=== PATIENT | female | born 1975 | race Two or more races ===

== ENCOUNTER → 2021-09-23 | Day surgery (SDC) | payer MEDICAID ==
[2021-09-21 10:38] LABS: Basophils # (auto) 0.1 10 ^3/uL (0-0.2); Basophils % (auto) 1.3 % (0.0-2.0); Eosinophils # (auto) 0.1 10 ^3/uL (0-0.8); Eosinophils % (auto) 0.7 % (0.0-7.0); Hematocrit 42.1 % (36.0-46.0); Hemoglobin 14.1 g/dL (12.2-16.2); Lymphocytes # (auto) 2.8 10 ^3/uL (0.4-5.4); Lymphocytes % (auto) 34.2 % (10.0-50.0); Mean Corpuscular Hgb Conc. 33.5 g/dL (32.0-36.0); Mean Corpuscular Volume 92.6 fL (80.0-100.0); Monocytes # (auto) 0.6 10 ^3/uL (0-1.3); Monocytes % (auto) 6.8 % (0.0-12.0); Neutrophils # (auto) 4.7 10 ^3/uL (1.6-8.6); Nucleated Red Blood Cells % 0.1 %; Red Blood Cells 4.55 10^6/uL (4.0-5.20); Red Cell Distribution Width 13.4 % (11.8-14.3); White Blood Cell 8.2 10^3/uL (4.4-10.8)
[2021-09-21 12:25] LABS: Albumin 3.7 g/dL (3.4-5.0); Calcium 8.8 mg/dL (8.5-10.1); Potassium 4.4 mmol/L (3.5-5.1)
[2021-09-21 12:30] LABS: Bilirubin, Total 0.5 mg/dL (0.2-1.0); Total Protein 6.8 g/dL (6.4-8.2)
[2021-09-21 12:54] LABS: BUN/Creatinine Ratio 11.3
[~2021-09-23] VITALS: Ht 167.6 cm; Wt 75.3 kg
[~2021-09-23] MED LIST: IBUP200T76 PO; LIDOCAINE VISCOUS 2% 15ML UD ONE; SUMA50TA2 PO; diphenhdrAMINE HCL 50 MG/1 ML VL ONE
[2021-09-23] MEDS: MIDAZOLAM HCL 5 MG/ML-1ML VIAL ONE ×2 (13:55→14:01)
[2021-09-23] MEDS: fentaNYL CITRATE 100 MCG/2 ML VL ONE ×2 (13:55→14:01)
[2021-09-23 14:45] VITALS: BP 103/69
== END | disposition home or self-care (01) ==
LOC: GI 12:18
PROVIDERS: ATTEND Internal Medicine Gastroenterology
DX: R13.10 Dysphagia, unspecified (principal); K29.50 Unspecified chronic gastritis without bleeding; B96.81 Helicobacter pylori [H. pylori] as the cause of diseases classified elsewhere; K22.10 Ulcer of esophagus without bleeding; K44.9 Diaphragmatic hernia without obstruction or gangrene; G43.909 Migraine, unspecified, not intractable, without status migrainosus; Z20.822 Contact with and (suspected) exposure to COVID-19
CPT/HCPCS: 36415; 43239; 43248; 80053; 84702; 85025; 88305; 88342; J1200; J2250; J3010; J7030; U0003; 99152

== ENCOUNTER → 2022-06-30 | Outpatient (CLI) | payer MEDICAID ==
[~2022-06-30] MED LIST changes: -LIDOCAINE VISCOUS 2% 15ML UD ONE; -diphenhdrAMINE HCL 50 MG/1 ML VL ONE
[2022-06-30 10:03] LABS: Basophils # (auto) 0.1 10 ^3/uL (0-0.2); Basophils % (auto) 0.5 % (0.0-2.0); Eosinophils # (auto) 0 10 ^3/uL (0-0.8); Eosinophils % (auto) 0.1 % (0.0-7.0); Hematocrit 43.4 % (36.0-46.0); Hemoglobin 14.7 g/dL (12.2-16.2); Lymphocytes # (auto) 2.5 10 ^3/uL (0.4-5.4); Lymphocytes % (auto) 18.1 % (10.0-50.0); Mean Corpuscular Hemoglobin 31.7 pg (28.0-32.0); Mean Corpuscular Hgb Conc. 33.9 g/dL (32.0-36.0); Mean Corpuscular Volume 93.6 fL (80.0-100.0); Monocytes # (auto) 0.8 10 ^3/uL (0-1.3); Neutrophils # (auto) 10.4 10 ^3/uL (1.6-8.6); Neutrophils % (auto) 75.3 % (37.0-80.0); Red Blood Cells 4.63 10^6/uL (4.0-5.20); Red Cell Distribution Width 13.3 % (11.8-14.3); White Blood Cell 13.8 10^3/uL (4.4-10.8)
[2022-06-30 12:22] LABS: Follicle Stimulating Hormone 49.78 IU/L (SEE BELOW); Leuteinizing Hormone 23.9 IU/L
== END | disposition home or self-care (01) ==
LOC: LAB 09:41
PROVIDERS: ATTEND Obstetrics & Gynecology
DX: N93.9 Abnormal uterine and vaginal bleeding, unspecified (principal)
CPT/HCPCS: 36415; 82670; 83001; 83002; 84403; 84443; 85025

== ENCOUNTER → 2023-05-11 | Outpatient (CLI) | payer MEDICAID ==
[2023-05-11 11:17] LABS: Albumin 4.1 g/dL (3.2-4.8); Bilirubin, Direct 0.2 mg/dL (<0.3); Bilirubin, Total 0.5 mg/dL (0.2-1.0); Total Protein 6.1 g/dL (5.7-8.2)
== END | disposition home or self-care (01) ==
LOC: LAB 10:14
PROVIDERS: ATTEND Internal Medicine
DX: K76.0 Fatty (change of) liver, not elsewhere classified (principal)
CPT/HCPCS: 36415; 80076

== ENCOUNTER → 2023-08-04 | Outpatient (CLI) | payer MEDICAID ==
[2023-08-04 08:14] LABS: Alanine Aminotransferase 114 U/L (7-40); Albumin 4.3 g/dL (3.2-4.8); Alkaline Phosphatase 85 U/L (46-116); Anion Gap 6 (5-15); Aspartate Aminotransferase 50 U/L (13-40); BUN/Creatinine Ratio 11.8 (10.0-20.0); Blood Urea Nitrogen 9 mg/dL (9-23); Carbon Dioxide 29 mmol/L (20-30); Chloride 109 mmol/L (98-107); Glucose 92 mg/dL (74-106); LDL Cholesterol 110 mg/dL (< 100); Sodium 144 mmol/L (136-145); Triglycerides 69 mg/dL (< 150)
[2023-08-04 08:15] LABS: Bilirubin, Total 0.9 mg/dL (0.2-1.0); Cholesterol 174 mg/dL (< 200); HDL Cholesterol 56 mg/dL (40-59); Total Protein 6.6 g/dL (5.7-8.2)
== END | disposition home or self-care (01) ==
LOC: LAB 07:21
PROVIDERS: ATTEND Internal Medicine
DX: E78.5 Hyperlipidemia, unspecified (principal); R73.03 Prediabetes
CPT/HCPCS: 36415; 80053; 80061; 83036

== ENCOUNTER → 2023-08-15 | Outpatient (CLI) | payer MEDICAID ==
[2023-08-15 10:51] LABS: Basophils # (auto) 0.1 10 ^3/uL (0-0.2); Basophils % (auto) 0.8 % (0.0-2.0); Eosinophils # (auto) 0.1 10 ^3/uL (0-0.8); Eosinophils % (auto) 0.6 % (0.0-7.0); Hematocrit 44.8 % (36.0-46.0); Hemoglobin 15.5 g/dL (12.2-16.2); Lymphocytes % (auto) 35.5 % (10.0-50.0); Mean Corpuscular Hemoglobin 32.4 pg (28.0-32.0); Mean Corpuscular Hgb Conc. 34.7 g/dL (32.0-36.0); Mean Corpuscular Volume 93.4 fL (80.0-100.0); Monocytes # (auto) 0.6 10 ^3/uL (0-1.3); Monocytes % (auto) 7.6 % (0.0-12.0); Neutrophils # (auto) 4.6 10 ^3/uL (1.6-8.6); Neutrophils % (auto) 55.5 % (37.0-80.0); Red Blood Cells 4.79 10^6/uL (4.0-5.20); Red Cell Distribution Width 12.7 % (11.8-14.3); White Blood Cell 8.4 10^3/uL (4.4-10.8)
[2023-08-15 11:11] LABS: Urine Bacteria NONE SEEN /hpf (None Seen); Urine Blood Negative /uL (Negative); Urine Clarity Clear (Clear); Urine Color Colorless (Yellow); Urine Protein, UAD Negative (Negative); Urine Specific Gravity 1.006 (1.001-1.035); Urine Urobilinogen Normal (Negative); Urine WBC 1 /hpf (0 - 5)
[2023-08-15 11:23] LABS: Alanine Aminotransferase 88 U/L (7-40); Albumin 4.5 g/dL (3.2-4.8); Alkaline Phosphatase 78 U/L (46-116); Anion Gap 7 (5-15); Aspartate Aminotransferase 48 U/L (13-40); BUN/Creatinine Ratio 6.4 (10.0-20.0); Blood Urea Nitrogen 5 mg/dL (9-23); Calcium 9.6 mg/dL (8.5-10.1); Carbon Dioxide 29 mmol/L (20-30); Chloride 106 mmol/L (98-107); Glucose 111 mg/dL (74-106); Sodium 142 mmol/L (136-145)
[2023-08-15 11:24] LABS: Bilirubin, Total 0.8 mg/dL (0.2-1.0); Total Protein 6.9 g/dL (5.7-8.2)
== END | disposition home or self-care (01) ==
LOC: LAB 10:14
PROVIDERS: ATTEND Internal Medicine
DX: K76.0 Fatty (change of) liver, not elsewhere classified (principal); E78.5 Hyperlipidemia, unspecified; R73.03 Prediabetes
CPT/HCPCS: 36415; 80053; 81001; 85025

== ENCOUNTER 2023-09-21 11:42 | Day surgery (SDC) | payer MEDICAID ==
[2023-09-14 11:25] LABS: Basophils # (auto) 0.1 10 ^3/uL (0-0.2); Basophils % (auto) 0.7 % (0.0-2.0); Eosinophils # (auto) 0.1 10 ^3/uL (0-0.8); Eosinophils % (auto) 1.1 % (0.0-7.0); Hematocrit 44.6 % (36.0-46.0); Hemoglobin 15.2 g/dL (12.2-16.2); Lymphocytes % (auto) 33.8 % (10.0-50.0); Mean Corpuscular Hemoglobin 32.3 pg (28.0-32.0); Monocytes # (auto) 0.7 10 ^3/uL (0-1.3); Monocytes % (auto) 7.5 % (0.0-12.0); Neutrophils # (auto) 5.1 10 ^3/uL (1.6-8.6); Neutrophils % (auto) 56.9 % (37.0-80.0); Nucleated Red Blood Cells % 0.1 %; Red Blood Cells 4.69 10^6/uL (4.0-5.20); Red Cell Distribution Width 13.2 % (11.8-14.3); White Blood Cell 8.9 10^3/uL (4.4-10.8)
[2023-09-14 11:40] LABS: INR 0.98 (0.9-1.15); Partial Thromboplastin Time 26.6 SEC (24.5-34.5); Prothrombin Time 10.3 sec (9.3-11.8)
[2023-09-14 12:01] LABS: Alanine Aminotransferase 76 U/L (7-40); Albumin 4.2 g/dL (3.2-4.8); Alkaline Phosphatase 99 U/L (46-116); Anion Gap 8 (5-15); Aspartate Aminotransferase 38 U/L (13-40); BUN/Creatinine Ratio 8.5 (10.0-20.0); Bilirubin, Total 0.6 mg/dL (0.2-1.0); Blood Urea Nitrogen 7 mg/dL (9-23); Calcium 9.5 mg/dL (8.5-10.1); Carbon Dioxide 28 mmol/L (20-30); Chloride 106 mmol/L (98-107); Glucose 95 mg/dL (74-106); Potassium 4.2 mmol/L (3.5-5.1); Sodium 142 mmol/L (136-145); Total Protein 6.5 g/dL (5.7-8.2)
[~2023-09-21] VITALS: Ht 165.1 cm; Wt 74.8 kg
[~2023-09-21 11:42] MED LIST changes: +OMEP20TA PO; +RIME75TA PO; +SEMA2INJ3 SC; +SODIUM CHLORIDE LOCK 10 ML ONE; -SUMA50TA2 PO
[2023-09-21 13:23] VITALS: PULSE 74; RESP 16; O2SAT 100
[2023-09-21] MEDS: diphenhdrAMINE HCL 50 MG/1 ML VL ONE ×2 (13:36→13:39)
[2023-09-21] MEDS: MIDAZOLAM HCL 5 MG/ML-1ML VIAL ONE ×2 (13:36→13:49)
[2023-09-21] MEDS: fentaNYL CITRATE 100 MCG/2 ML VL ONE ×2 (13:36→13:48)
[2023-09-21 14:06] VITALS: PULSE 76; RESP 13; TEMP 97.6; O2SAT 100
[2023-09-21 14:35] VITALS: BP 106/68; PULSE 77; RESP 16; O2SAT 100
== END 2023-09-21 14:45 | disposition home or self-care (01) ==
LOC: GI 11:42
PROVIDERS: ATTEND Internal Medicine Gastroenterology
DX: K59.00 Constipation, unspecified (principal); K58.9 Irritable bowel syndrome, unspecified; Q43.8 Other specified congenital malformations of intestine; K63.89 Other specified diseases of intestine; K63.5 Polyp of colon; K64.4 Residual hemorrhoidal skin tags; K64.0 First degree hemorrhoids
CPT/HCPCS: 36415; 45385; 80053; 81025; 85025; 85610; 85730; 88305; J1200; J2250; J3010; J7030

== ENCOUNTER 2023-12-01 09:31 | Emergency (ER) | payer MEDICAID ==
[~2023-12-01] VITALS: Ht 162.6 cm; Wt 74.7 kg
[~2023-12-01 09:31] MED LIST changes: -SODIUM CHLORIDE LOCK 10 ML ONE
[2023-12-01 10:11] VITALS: BP 113/77; PULSE 100; RESP 16; TEMP 97.9; O2SAT 98
[2023-12-01] MEDS ORDERED: CEPH500C PO (10:23)
[2023-12-01] MEDS ORDERED: NAPR-746 PO (10:23)
== END 2023-12-01 10:29 | disposition home or self-care (01) ==
LOC: ER 09:31
DX: S70.11XA Contusion of right thigh, initial encounter (principal); Z79.899 Other long term (current) drug therapy; W01.0XXA Fall on same level from slipping, tripping and stumbling without subsequent striking against object, initial encounter; Y93.89 Activity, other specified; Y92.89 Other specified places as the place of occurrence of the external cause; Y99.8 Other external cause status
CPT/HCPCS: 73502

== ENCOUNTER → 2024-07-16 | Outpatient (CLI) | payer MEDICAID ==
[~2024-07-16] MED LIST changes: +CEPH500C PO; +NAPR-746 PO
[2024-07-16 09:57] LABS: Basophils # (auto) 0.1 10 ^3/uL (0-0.2); Basophils % (auto) 0.8 % (0.0-2.0); Eosinophils # (auto) 0.1 10 ^3/uL (0-0.8); Eosinophils % (auto) 0.6 % (0.0-7.0); Hematocrit 47.9 % (36.0-46.0); Hemoglobin 16.3 g/dL (12.2-16.2); Lymphocytes # (auto) 2.6 10 ^3/uL (0.4-5.4); Lymphocytes % (auto) 32.1 % (10.0-50.0); Mean Corpuscular Hemoglobin 32.3 pg (28.0-32.0); Mean Corpuscular Hgb Conc. 34.1 g/dL (32.0-36.0); Mean Corpuscular Volume 94.7 fL (80.0-100.0); Monocytes # (auto) 0.5 10 ^3/uL (0-1.3); Monocytes % (auto) 6.2 % (0.0-12.0); Neutrophils # (auto) 4.9 10 ^3/uL (1.6-8.6); Neutrophils % (auto) 60.3 % (37.0-80.0); Platelet Count (auto) 308 10^3/uL (140-450); Red Blood Cells 5.06 10^6/uL (4.0-5.20); Red Cell Distribution Width 13.1 % (11.8-14.3); White Blood Cell 8.1 10^3/uL (4.4-10.8)
[2024-07-16 10:56] LABS: Alanine Aminotransferase 42 U/L (7-40); Albumin 4.5 g/dL (3.2-4.8); Alkaline Phosphatase 122 U/L (46-116); Anion Gap 8 (5-15); Aspartate Aminotransferase 23 U/L (13-40); BUN/Creatinine Ratio 8.6 (10.0-20.0); Bilirubin, Total 0.7 mg/dL (0.2-1.0); Blood Urea Nitrogen 6 mg/dL (9-23); Calcium 9.8 mg/dL (8.7-10.4); Carbon Dioxide 26 mmol/L (20-31); Chloride 107 mmol/L (98-107); Glucose 108 mg/dL (74-106); Sodium 141 mmol/L (136-145); Total Protein 7.4 g/dL (5.7-8.2)
[2024-07-16 10:57] LABS: Beta HCG, Quantitative 0.3 mIU/mL (1.5-4.2); Thyroid Stimulating Hormone 1.47 uIU/mL (0.55-4.78)
[2024-07-16 11:20] LABS: Follicle Stimulating Hormone 27.85 IU/L (SEE BELOW); Prolactin 5.12 ng/mL (2.8-29.2)
[2024-07-17 08:06] LABS: Estradiol 28.6 pg/mL (.)
[2024-07-17 11:07] LABS: Chlamydia Trachomatis, NAA Negative (Negative); Neisseria gonorrhoeae, NAA Negative (Negative)
== END | disposition home or self-care (01) ==
LOC: LAB 09:07
PROVIDERS: ATTEND Obstetrics & Gynecology
DX: Z87.42 Personal history of other diseases of the female genital tract (principal)
CPT/HCPCS: 36415; 80053; 82670; 83001; 84146; 84443; 84702; 85025; 86703; 86803; 87340

== ENCOUNTER → 2025-01-10 | Outpatient (CLI) | payer MEDICAID ==
[2025-01-10 12:51] LABS: Basophils # (auto) 0.1 10 ^3/uL (0-0.2); Basophils % (auto) 0.6 % (0.0-2.0); Eosinophils # (auto) 0.1 10 ^3/uL (0-0.8); Eosinophils % (auto) 1.1 % (0.0-7.0); Hematocrit 43.9 % (36.0-46.0); Lymphocytes # (auto) 3.7 10 ^3/uL (0.4-5.4); Lymphocytes % (auto) 39.9 % (10.0-50.0); Mean Corpuscular Hemoglobin 31.9 pg (28.0-32.0); Mean Corpuscular Hgb Conc. 34.3 g/dL (32.0-36.0); Mean Corpuscular Volume 93.1 fL (80.0-100.0); Monocytes # (auto) 0.6 10 ^3/uL (0-1.3); Monocytes % (auto) 6.4 % (0.0-12.0); Neutrophils # (auto) 4.8 10 ^3/uL (1.6-8.6); Nucleated Red Blood Cells % 0.1 %; Platelet Count (auto) 267 10^3/uL (140-450); Red Blood Cells 4.71 10^6/uL (4.0-5.20); Red Cell Distribution Width 12.6 % (11.8-14.3); White Blood Cell 9.3 10^3/uL (4.4-10.8)
[2025-01-10 13:08] LABS: Creatinine, Urine 131.2 mg/dL (30.0-125.0)
[2025-01-10 13:10] LABS: Alanine Aminotransferase 14 U/L (7-40); Albumin 4.5 g/dL (3.2-4.8); Alkaline Phosphatase 97 U/L (46-116); Amylase 60 U/L (30-118); Anion Gap 8 (5-15); Bilirubin, Total 0.3 mg/dL (0.2-1.0); Blood Urea Nitrogen 12 mg/dL (9-23); Calcium 9.6 mg/dL (8.7-10.4); Carbon Dioxide 27 mmol/L (20-31); Chloride 106 mmol/L (98-107); Potassium 4.1 mmol/L (3.5-5.1); Sodium 141 mmol/L (136-145)
[2025-01-10 13:25] LABS: Aspartate Aminotransferase 11 U/L (13-40); Glucose 134 mg/dL (74-106); Lipase 74 U/L (12-53)
== END | disposition home or self-care (01) ==
LOC: LAB 12:01
PROVIDERS: ATTEND Internal Medicine
DX: R73.03 Prediabetes (principal); R10.9 Unspecified abdominal pain
CPT/HCPCS: 36415; 80053; 82043; 82150; 82570; 83036; 83690; 85025